=== PATIENT | female | born 1940 | race Caucasian/White ===

== ENCOUNTER 2020-03-20 14:15 | Emergency (ER) | payer OTHER ==
--- NOTE | 2020-03-20 14:19 | PDOC ---
Rapid Medical Evaluation Time Seen by Provider: 03/20/20 14:16 Medical Evaluation: 03/20/20 14:16 I have performed a brief in-person evaluation of this patient. CC: SOB; PMHx asthma PE: Lungs CTAB. HR-120. Orders: ekg, labs, urine, CXR, Covid-19 Patient will proceed to ED for further evaluation. 03/20/20 14:18 Discharge Disposition - Diagnosis SOB (shortness of breath) - Referrals - Patient Instructions - Post Discharge Activity
[2020-03-20 14:21] VITALS: TEMP 97.7; BMI 19.5
[2020-03-20 14:50] LABS: EOS % 2.9 % (0-4.5); HEMOGLOBIN 14.3 GM/dL (10.7-15.3); LYMPH % 25.2 % (8-40); MCH 31.6 pg (25.7-33.7); MCHC 33.3 g/dl (32.0-36.0); MEAN CELL VOLUME 94.8 fl (80-96); MEAN PLT VOLUME 7.7 fl (7.5-11.1); MONO % 6.8 % (3.8-10.2); NEUT % 64.1 % (42.8-82.8); PLATELET COUNT 318 K/MM3 (134-434); RBC 4.53 M/mm3 (3.60-5.2); RDW 13.6 % (11.6-15.6); WHITE BLOOD COUNT 6.9 K/mm3 (4.0-10.0)
[2020-03-20 14:56] LABS: PROTHROMBIN TIME (PATIENT) 11.8 SEC (9.7-13.0)
--- NOTE | 2020-03-20 14:56 | PDOC ---
History of Present Illness - General Chief Complaint: Shortness of Breath Stated Complaint: ASTHMA Time Seen by Provider: 03/20/20 14:16 - History of Present Illness Initial Comments: Pt is a 80yo F with a PMH asthma who presents with dry cough and SOB. Pt was sent by PCP for chest xray. Pt and her son providing history. States 5 month history of intermittent dry cough, dyspnea on exertion, sore throat. Was prescribed prednisone and albuterol by PCP, however patient did not take these medications. Was prescribed Zpack and told to take OTC cough medications, without improvement in symptoms. Denies recent travel, history of malignancy/cancer. Denies any recent sick contacts; lives at home with and sisters; denies known COVID exposure or history of COVID. Reports associated fatigue and palpitations. Son states recent decreased appetite, but patient states she is trying to loose weight. Denies f/c, chest pain, abdominal pain, n/v, melena/hematochezia, hematuria. PCP: Lisandro PMH: denies PSHx: denies Meds: denies All: NKDA Review of Systems CONSTITUTIONAL:reports fatigue, denies fever, chills, diaphoresis, generalized weakness HEENT:reports sore throat, denies rhinorrhea, nasal congestion, ear pain, eye pain, visual Changes CARDIOVASCULAR:reports palpitations; denies chest pain, syncope, lightheadedness, peripheral edema RESPIRATORY:reports cough, shortness of breath, dyspnea with exertion; denies orthopnea, wheezing, hemoptysis GASTROINTESTINAL: denies abdominal pain, nausea, vomiting, diarrhea, constipation, melena, hematochezia GENITOURINARY:denies dysuria, frequency, urgency, hesitancy, hematuria, flank pain MUSCULOSKELETAL:denies myalgia, arthralgia, back pain HEMATOLOGIC/IMMUNOLOGIC:denies easy bleeding, easy bruising ENDOCRINE: denies unexplained weight gain, unexplained weight loss NEUROLOGIC:denies headache, loss of consciousness, focal weakness or par esthesias, dizziness, unsteady gait, seizure, mental status changes, bladder or bowel incontinence SKIN:denies rash, itching, pallor Physical Exam General: awake, alert, in no acute distress, well developed, well nourished Head: normocephalic, atraumatic Eyes: PERRL, EOMI, anicteric sclera, conjunctiva clear ENT: hearing grossly normal, nares patent, oropharynx clear without exudates. No nasal congestion Moist mucous membranes; erythematous oropharynx; L tonsillar swelling w/o exudate Neck: supple, normal ROM; L submandibular mass appreciated on palpation Lung: equal breath sounds b/l, CTA b/l, no crackles, wheezes; no distress, speaks full sentences Heart: tachycardic, normal S1, S2, no murmurs, rubs, gallops Chest: retracted nipple on R side; multiple points of skin dimpling on R breast at 10, 7 and 5 o clock, firm hard mass to lateral aspect of R breast, asy mmetrical lie compared to L breast. No nipple discharge or bleeding appreciated. Abdomen: soft, non tender, normoactive bowel sounds, no guarding, rebound, masses Extremities: no edema, no erythema or tenderness, DP/PT pulses 2+ and symmetric, no clubbing, cyanosis Neuro: CN2-12 grossly intact, moves all extremities, normal speech, sensation intact 03/20/20 17:59 Past History - Medical History Allergies/Adverse Reactions: Allergies Allergy/AdvReac Type Severity Reaction Status Date / Time No Known Allergies Allergy Verified 03/20/20 14:21 Asthma: Yes COPD: No - Reproductive History Is Patient Now?: No - Immunization History Immunization Up to Date: No - Psycho-Social/Smoking History Smoking History: Never smoked Have you smoked in the past 12 months: No Information on smoking cessation initiated: No - Substance Abuse Hx (Audit-C & DAST Scrn) How often the patient has a drink containing alcohol: Never Score: In Men: 4 or > Positive; In Women: 3 or > Positive: 0 Screen Result (Pos requires Nsg. Audit-10AR): Negative In the last yr the pt used illegal drug/Rx for NonMed reason: No Score: Yes response is considered Positive: 0 Screen Result (Positive result requires Nsg. DAST-10): Negative *Physical Exam - Vital Signs Last Vital Signs Temp Pulse Resp BP Pulse Ox 97.7 F 109 H 16 156/88 97 03/20/20 14:17 03/20/20 14:17 03/20/20 14:17 03/20/20 14:17 03/20/20 14:17 ED Treatment Course - LABORATORY CBC & Chemistry Diagram: 03/20/20 14:30 03/20/20 14:30 - ADDITIONAL ORDERS Additional order review: 03/20/20 14:30 RBC 4.53 MCV 94.8 MCHC 33.3 RDW 13.6 MPV 7.7 Neutrophils % 64.1 Lymphocytes % 25.2 Monocytes % 6.8 Eosinophils % 2.9 Basophils % 1.0 Medical Decision Making - Medical Decision Making Pt is a 80yo F with a PMH asthma who presents with dry cough and SOB x5mo sent by PCP Vital Signs Period Temp Pulse Resp BP Sys/Nash Pulse Ox Last 24 Hr 97.7 F 109 16 156/88 97 DDx: asthma exacerbation, PE Plan: CXR, labs CXR: bilateral diffuse lung masses concerning for metastatic disease will order CT chest, abdomen, pelvis Labs: no anemia, no leukocytosis, electrolytes WNL, no TOMAS, troponin WNL Laboratory Tests 03/20/20 03/20/20 03/20/20 14:30 14:30 14:30 WBC 6.9 RBC 4.53 Hgb 14.3 Hct 43.0 MCV 94.8 MCH 31.6 MCHC 33.3 RDW 13.6 Plt Count 318 MPV 7.7 Absolute Neuts (auto) 4.4 Neutrophils % 64.1 Lymphocytes % 25.2 Monocytes % 6.8 Eosinophils % 2.9 Basophils % 1.0 Nucleated RBC % 0 PT with INR 11.80 INR 1.00 PTT (Actin FS) 35.9 Sodium 138 Potassium 4.3 Chloride 103 Carbon Dioxide 24 Anion Gap 11 BUN 17.6 Creatinine 1.1 Est GFR (CKD-EPI)AfAm 55.69 Est GFR (CKD-EPI)NonAf 48.05 Random Glucose 91 Calcium 9.9 Magnesium 2.6 H Total Bilirubin 1.2 H AST 42 H ALT 18 Alkaline Phosphatase 77 Creatine Kinase 71 Troponin I 0.05 Total Protein 7.7 Albumin 4.0 Consulted Heme/Onc given CXR, recommended pulm follow up, outpatient f/u with heme/onc within 1 week; blood culture to evaluate for endocarditis - during their evaluation, patient expressed desire to go home rather than admission Spoke with pulm who recommended outpatient f/u tomorrow for PET scan. pending CT 03/20/20 18:09 CT chest, abdomen, and pelvis: Innumerable bilateral lung mass lesions/nodules compatible with a neoplastic process/metastasis No definite enlarged mediastinal or hilar lymph nodes are identified. Multiple right breast masses suspicious for a neoplastic process. Evaluation of the abdomen pelvis is essentially unremarkable without CT evidence of an acute process or discrete mass lesion. Degenerative disc disease from L4 down to S1 level with significant bilateral facet hypertrophy, as described above as well as grade 1 anterolisthesis of L4 over L5. 03/20/20 18:[address] results with patient and her son. Discussed admission vs close outpatient follow up with patient. Pt expressed desire to go home. Informed of all lab and imaging results. Given copy of CT report and CD of imaging. Given follow up instructions and strict return precautions. Patient expressed understanding and agreed to plan. Disposition Discharge to home Discharge - Discharge Information Problems reviewed: Yes Clinical Impression/Diagnosis: SOB (shortness of breath) Condition: Stable Disposition: HOME - Admission No - Follow up/Referral Referrals: Sen Mcmahon MD [Primary Care Provider] - Braden Russell MD [Staff Physician] - Margot Brown MD [Staff Physician] - Roman Meyer MD [Staff Physician] - - Patient Discharge Instructions Additional Instructions: You came into the ER dry cough and shortness of breath. In the ED, you were evaluated with blood work, chest xray and CT scan of your chest, abdomen, and pelvis. Your results were concerning for metastatic disease in your lungs. You do not appear to be an acute need for immediate hospitalization, but you should follow up as soon as possible with the referrals below. You were given a referral to pulmonology (lung doctor). The office's phone numb er is [phone]. Call this number tomorrow morning to schedule an appoin tment. They will help you schedule a PET scan. You were given a referral to oncologist, Dr. Margot Brown. Call her office tomorrow morning to schedule an appointment. You will need to schedule an appointment within 1 week. You were given a referral to an ear, nose, and throat doctor, Dr. Meyer. Call tomorrow morning to schedule an appointment and follow up with him as able. Come back to the ER immediately with any new or worsening concerns. Thank you for coming to the [facility] ER. - Post Discharge Activity
[2020-03-20 14:59] LABS: ACTIVATED PTT 35.9 SECONDS (25.2-36.5)
[2020-03-20 15:41] LABS: BILIRUBIN,TOTAL 1.2 mg/dL (0.2-1); BLOOD UREA NITROGEN 17.6 mg/dL (7-18); CALCIUM 9.9 mg/dL (8.5-10.1); CREATININE 1.1 mg/dL (0.55-1.3); MAGNESIUM 2.6 mg/dL (1.8-2.4); POTASSIUM 4.3 mmol/L (3.5-5.1); TOT PROT 7.7 g/dl (6.4-8.2)
--- NOTE | 2020-03-20 16:41 | PDOC ---
Documentation entered by Tyree Huff SCRIBE, acting as scribe for Vinh Parra MD. Vinh Parra MD: This documentation has been prepared by the Refugio velasquez Xhesika, SCRIBE, under my direction and personally reviewed by me in its entirety. I confirm that the documentation accurately reflects all work, treatment, procedures, and medical decision making performed by me. Attending Attestation - Resident Resident Name: DwainCristiana - ED Attending Attestation I have performed the following: I have examined & evaluated the patient, The case was reviewed & discussed with the resident, I agree w/resident's findings & plan, Exceptions are as noted - HPI HPI: 03/20/20 15:18 The patient is a 80 year old female with a significant PMH of asthma (as a child) who presents to the emergency department for several months of congestion and intermittent cough. Pt saw Dr. Mcmahon 2 months ago, was prescribed a z-Pack which she finished with mild improvement of symptoms. Pt states she saw Dr. Mcmahon again today, he prescribed her prednisone and albuterol, but also advised her to come to the ED for CXR. Pt reports SOB on exertion and when walking up stairs. Pt denies any recent sick contacts. Denies recent traveling. The patient denies chest pain, headache and dizziness. Denies fever, chills, nausea, vomiting, diarrhea and constipation. Denies dysuria, frequency, urgency and hematuria. Allergies: NKDA PCP: Dr. Mcmahon - Physicial Exam PE: GENERAL: The patient is awake, alert, and fully oriented, Nontoxic - in no acute distress. LUNGS: Breath sounds equal, clear to auscultation bilaterally. No wheezes, no rhonchi, no rales. CHEST: retracted R niple with dimpling, no dischage HEART: Regular rate and rhythm, normal S1 and S2 without murmur, rub or gallop. ABDOMEN: Soft, nontender, No guarding, no rebound. No CVA tenderness EXTREMITIES: Normal range of motion, no edema. NEUROLOGICAL: No facial assymetry, Normal speech, - Medical Decision Making concern for possible metstatic disease in light of her sob/cxr findings and breast exam discussed with onc, ct chest obtained noted for innumerable b/l lung masses suspicios for neplastic disease will have pt fu for workup as an outpatient. Discharge - Discharge Information Problems reviewed: Yes Clinical Impression/Diagnosis: SOB (shortness of breath), Lung mass Condition: Stable Disposition: HOME - Admission No - Follow up/Referral Referrals: Margot Brown MD [Staff Physician] - Braden Russell MD [Staff Physician] - Sen Mcmahon MD [Primary Care Provider] - Roman Meyer MD [Staff Physician] - - Patient Discharge Instructions Additional Instructions: You came into the ER dry cough and shortness of breath. In the ED, you were evaluated with blood work, chest xray and CT scan of your chest, abdomen, and pelvis. Your results were concerning for metastatic disease in your lungs. You do not appear to be an acute need for immediate hospitalization, but you should follow up as soon as possible with the referrals below. You were given a referral to pulmonology (lung doctor). The office's phone number is [phone]. Call this number tomorrow morning to schedule an appointment. They will help you schedule a PET scan. You were given a referral to oncologist, Dr. Margot Brown. Call her office tomorrow morning to schedule an appointment. You will need to schedule an appointment within 1 week. You were given a referral to an ear, nose, and throat doctor, Dr. Meyer. Call tomorrow morning to schedule an appointment and follow up with him as able. Come back to the ER immediately with any new or worsening concerns. Thank you for coming to the [facility] ER. - Post Discharge Activity
--- NOTE | 2020-03-20 17:04 | CONSULT ---
Consultation: REQUESTING PROVIDER: Dr Prakash CONSULT REQUEST: We have been asked to medically evaluate this patient for possible metastatic disease on CXR HISTORY OF PRESENT ILLNESS: Patient is a 80 year old female with history of HLD, asthma, presented to the ED from her PCP's office for further evaluation of chronic cough and hoarseness of voice. Patient reported symptoms of dry cough and hoarseness started about 5 months ago. She would follow up with PCP through telehealth and would be prescribed antibiotics, which son reported she's not compliant with. Today, patient followed up at the office and was advised further evaluation at the hospital. Patient reported an 8-lb weight loss, but said it was intentional. Otherwise she denies any fevers, chills, sore throat, congestion, headache, dizziness, chest pain, abdominal pain, diarrhea, urinary symptoms. PMHx: HLD, asthma PSHx: SHx: denies smoking. EtOH use, illicit drug use Allergies: NKDA FHx: no hx of cancer in the family REVIEW OF SYSTEMS: CONSTITUTIONAL: Absent: fever, chills, diaphoresis, generalized weakness, malaise, loss of appetite, weight change HEENT: voice hoarseness, dry cough Absent: rhinorrhea, nasal congestion, throat pain, throat swelling, difficulty swallowing, mouth swelling, ear pain, eye pain, visual changes CARDIOVASCULAR: Absent: chest pain, syncope, palpitations, irregular heart rate, lightheadedness, peripheral edema RESPIRATORY: Absent: cough, shortness of breath, dyspnea with exertion, orthopnea, wheezing, stridor, hemoptysis GASTROINTESTINAL: Absent: abdominal pain, abdominal distension, nausea, vomiting, diarrhea, constipation, melena, hematochezia GENITOURINARY: Absent: dysuria, frequency, urgency, hesitancy, hematuria, flank pain, genital pain MUSCULOSKELETAL: Absent: myalgia, arthralgia, joint swelling, back pain, neck pain SKIN: Absent: rash, itching, pallor HEMATOLOGIC/IMMUNOLOGIC: Absent: easy bleeding, easy bruising, lymphadenopathy, frequent infections ENDOCRINE: Absent: unexplained weight gain, unexplained weight loss, heat intolerance, cold intolerance NEUROLOGIC: Absent: headache, focal weakness or paresthesias, dizziness, unsteady gait, seizure, mental status changes, bladder or bowel incontinence PSYCHIATRIC: Absent: anxiety, depression, suicidal or homicidal ideation, hallucinations. PHYSICAL EXAMINATION Vital Signs - 24 hr 03/20/20 14:17 Temperature 97.7 F Pulse Rate 109 H Respiratory 16 Rate Blood Pressure 156/88 O2 Sat by Pulse 97 Oximetry (%) GENERAL: Awake, alert, and fully oriented, in no acute distress. EARS, NOSE, THROAT:oropharynx erythematous, without exudates. Moist mucous membranes. NECK: Normal range of motion, supple LUNGS: Breath sounds equal, clear to auscultation bilaterally HEART: Regular rate and rhythm, normal S1 and S2 ABDOMEN: Soft, nontender, not distended, normoactive bowel sounds LOWER EXTREMITIES: 2+ pulses, warm, well-perfused. No calf tenderness. No peripheral edema. NEUROLOGICAL: Cranial nerves II-XII intact. Normal speech. PSYCHIATRIC: Cooperative. Good eye contact. Appropriate mood and affect. SKIN: Warm, dry, normal turgor Laboratory Results - last 24 hr 03/20/20 03/20/20 03/20/20 14:30 14:30 14:30 WBC 6.9 RBC 4.53 Hgb 14.3 Hct 43.0 MCV 94.8 MCH 31.6 MCHC 33.3 RDW 13.6 Plt Count 318 MPV 7.7 Absolute Neuts (auto) 4.4 Neutrophils % 64.1 Lymphocytes % 25.2 Monocytes % 6.8 Eosinophils % 2.9 Basophils % 1.0 Nucleated RBC % 0 PT with INR 11.80 INR 1.00 PTT (Actin FS) 35.9 Sodium 138 Potassium 4.3 Chloride 103 Carbon Dioxide 24 Anion Gap 11 BUN 17.6 Creatinine 1.1 Est GFR (CKD-EPI)AfAm 55.69 Est GFR (CKD-EPI)NonAf 48.05 Random Glucose 91 Calcium 9.9 Magnesium 2.6 H Total Bilirubin 1.2 H AST 42 H ALT 18 Alkaline Phosphatase 77 Creatine Kinase 71 Troponin I 0.05 Total Protein 7.7 Albumin 4.0 ASSESSMENT/PLAN: Patient is a 80 year old female with history of HLD, asthma, presented to the ED from her PCP's office for further evaluation of chronic cough and hoarseness of voice. We were called to evaluate for diffuse bilateral lung masses found on CXR #Lung masses b/l -recommended Chest/Abdomen CT with contrast for further evaluation of lung lesions -recommend Pulm consult -ID consult for possible ?infectious origin -if patient not amenable to admission, please have her follow up with Dr. Margot in clinic within a week. Dispo: We will continue to follow the patient. Thank you for this consultative opportunity. Visit type - Medication Review Med list reviewed for High Risk Meds patients 65 and older: Yes - Emergency Visit Emergency Visit: Yes Care time: The patient presented to the Emergency Department on the above date and was hospitalized for further evaluation of their emergent condition. - New Patient This patient is new to me today: Yes Date on this admission: 03/20/20 - Critical Care Critical Care patient: No ATTENDING PHYSICIAN STATEMENT I saw and evaluated the patient. I reviewed the resident's note and discussed the case with the resident. I agree with the resident's findings and plan as documented. SUBJECTIVE: OBJECTIVE: ASSESSMENT AND PLAN:
[2020-03-20 18:24] VITALS: BP 137/94; PULSE 107
--- NOTE | 2020-03-21 13:16 | EKG ---
Test Reason : Blood Pressure : / mmHG Vent. Rate : 099 BPM Atrial Rate : 099 BPM P-R Int : 142 ms QRS Dur : 078 ms QT Int : 360 ms P-R-T Axes : 055 002 053 degrees QTc Int : 462 ms NORMAL SINUS RHYTHM POSSIBLE LEFT ATRIAL ENLARGEMENT BORDERLINE ECG WHEN COMPARED WITH ECG OF 26-JAN-2007 15:54, NO SIGNIFICANT CHANGE WAS FOUND Confirmed by MD SENIA, ZOE ([id number]) on 03/21/2020 1:15:56 PM Referred By: Confirmed By:ZOE CONN MD
== END 2020-03-20 18:27 | disposition home or self-care (01) ==
LOC: JER 14:15
DX: R06.02 Shortness of breath (principal)
CPT/HCPCS: 36415; 71046-TC-FY; 71260-TC; 74177-TC; 80053; 82550; 83735; 84484; 85025; 85610; 85730; 93005; 93010; 99285-25; Q9967; U0003

== ENCOUNTER 2020-09-05 19:15 | Inpatient (IN) | payer OTHER ==
[2020-09-05] MEDS ORDERED: ALBUTEROL SO4 2.5/IPRATROPIUM 0.5 INH SOL 3 ML VIAL.NEB. NEB ONE ×2 (20:06→20:23)
[2020-09-05] MEDS ORDERED: DEXAMETHASONE SOD PHOSPHATE 10 MG/1 ML VIAL IVPUSH ONE (20:06)
[2020-09-05 20:11] VITALS: BMI 16.6
[2020-09-05] MEDS ORDERED: DEXAMETHASONE SOD PHOSPHATE 10 MG/1 ML VIAL ONE (20:22)
[2020-09-05 20:55] LABS: BASO % 0.2 % (0-2.0); EOS % 0.6 % (0-4.5); HEMATOCRIT 46.5 % (32.4-45.2); HEMOGLOBIN 15.5 GM/dL (10.7-15.3); LYMPH % 8.8 % (8-40); MCH 31.3 pg (25.7-33.7); MCHC 33.4 g/dl (32.0-36.0); MEAN CELL VOLUME 93.7 fl (80-96); MONO % 7.2 % (3.8-10.2); NEUT % 83.2 % (42.8-82.8); RBC 4.96 M/mm3 (3.60-5.2); RDW 15.2 % (11.6-15.6); WHITE BLOOD COUNT 11.2 K/mm3 (4.0-10.0)
[2020-09-05 21:07] LABS: INR 1.05 (0.83-1.09); PROTHROMBIN TIME (PATIENT) 12.7 SEC (9.7-13.0)
[2020-09-05 21:09] LABS: ACTIVATED PTT 24.4 SECONDS (25.2-36.5)
[2020-09-05 21:16] LABS: POTASSIUM 4.4 mmol/L (3.5-5.1)
[2020-09-05 21:19] LABS: ALBUMIN 3.9 g/dl (3.4-5.0); BLOOD UREA NITROGEN 25.2 mg/dL (7-18)
[2020-09-05 21:22] LABS: CREATININE 1.2 mg/dL (0.55-1.3)
[2020-09-05 21:23] LABS: BILIRUBIN,TOTAL 1.6 mg/dL (0.2-1)
[2020-09-05 21:33] LABS: PLATELET COUNT 295 K/MM3 (134-434)
[2020-09-05] MEDS ORDERED: SODIUM CHLORIDE 0.9% 500 ML INFUS.BAG IV ONE (21:42)
[2020-09-05 22:49] LABS: ARTERIAL BLD GAS O2 SATURATION 97.1 mmHg (95-98); ARTERIAL BLOOD GAS BASE EXCESS -2.9 mmol/L (-2-2); ARTERIAL BLOOD GAS PO2 90.8 mmHg (80-100); ARTERIAL BLOOD GAS pH 7.413 (7.350-7.450)
[2020-09-05 22:51] LABS: ALLENS TEST POSITIVE
[2020-09-06] MEDS ORDERED: SODIUM CHLORIDE 0.9% 500 ML INFUS.BAG IV ONE (02:40)
[2020-09-06] MEDS ORDERED: ONDANSETRON 4 MG/2 ML VIAL IVPUSH ONE (05:05)
[2020-09-06] MEDS ORDERED: ONDANSETRON 4 MG/2 ML VIAL ONE (05:09)
[2020-09-06] MEDS: DEXTROSE 5%-0.45% SALINE 1,000 ML IV SCH ×2 (05:31→23:18)
[2020-09-06 07:06] LABS: INR 1.14 (0.83-1.09); PROTHROMBIN TIME (PATIENT) 13.7 SEC (9.7-13.0)
[2020-09-06 07:07] LABS: ACTIVATED PTT 26.8 SECONDS (25.2-36.5)
[2020-09-06 07:12] LABS: BASO % 0.2 % (0-2.0); HEMATOCRIT 37.2 % (32.4-45.2); HEMOGLOBIN 12.7 GM/dL (10.7-15.3); LYMPH % 6.2 % (8-40); MCH 31.3 pg (25.7-33.7); MCHC 34.1 g/dl (32.0-36.0); MEAN CELL VOLUME 91.9 fl (80-96); MEAN PLT VOLUME 8.3 fl (7.5-11.1); MONO % 2.4 % (3.8-10.2); NEUT % 91.2 % (42.8-82.8); PLATELET COUNT 233 K/MM3 (134-434); RBC 4.05 M/mm3 (3.60-5.2); RDW 14.8 % (11.6-15.6); WHITE BLOOD COUNT 8.6 K/mm3 (4.0-10.0)
[2020-09-06 07:20] LABS: POTASSIUM 4.3 mmol/L (3.5-5.1)
[2020-09-06 07:31] LABS: ALBUMIN 3.1 g/dl (3.4-5.0); CALCIUM 8.7 mg/dL (8.5-10.1)
[2020-09-06 07:32] LABS: BLOOD UREA NITROGEN 22.3 mg/dL (7-18); MAGNESIUM 2.1 mg/dL (1.8-2.4)
[2020-09-06 07:34] LABS: PHOSPHOROUS 3.4 mg/dL (2.5-4.9)
[2020-09-06 07:35] LABS: CREATININE 0.8 mg/dL (0.55-1.3)
[2020-09-06 07:36] LABS: BILIRUBIN,TOTAL 1.2 mg/dL (0.2-1); TOT PROT 6.1 g/dl (6.4-8.2)
[2020-09-06 09:30] LABS: ANISOCYTOSIS 0; MACROCYTOSIS 0; PLATELET ESTIMATE NORMAL
[2020-09-06 11:20] LABS: EPI CELLS >36 /uL (0-25.1); HYALINE CASTS 7 /uL (0-3.1); URINE APPEARANCE Clear; URINE BACTERIA 127 /uL (0-1359); URINE BILIRUBIN Negative (NEGATIVE); URINE COLOR Yellow; URINE GLUCOSE (UA) Negative (NEGATIVE); URINE KETONE 15 mg/dl (NEGATIVE); URINE LEUK ESTERASE Trace (NEGATIVE); URINE NITRITE Negative (NEGATIVE); URINE PROTEIN Negative (NEGATIVE); URINE UROBILINOGEN 0.2 mg/dL (0.2-1.0); URINE WBC 94 /uL (0-25.8)
[2020-09-06 11:32] LABS: URINE RBC 18.8 /uL (0-23.9)
[2020-09-06 11:33] LABS: URINE CRYSTALS PRESENT /hpf
[2020-09-06] MEDS ORDERED: PIPERACILLIN/TAZOB 3.375 GM 3.375 GM in DEXTROSE 5%-WATER - 50 ML IVPB ONE (12:05)
[2020-09-06] MEDS ORDERED: PIPERACILLIN/TAZOB 3.375 GM 3.375 GM/50 ML BAG IVPB ONE ×2 (12:48→18:12)
[2020-09-06] MEDS ORDERED: guaiFENesin/CODEINE 5 ML UNIT-DOSE CUPS PO PRN (14:22)
[2020-09-06] MEDS ORDERED: ALBUTEROL SO4 0.083% IH SOL 2.5 MG/3 ML VIAL.NEB. NEB PRN (14:23)
[2020-09-06] MEDS ORDERED: methylPREDNISolone NA SUCC 40 MG/1 ML VIAL ONE ×2 (14:34→18:12)
[2020-09-06] MEDS: methylPREDNISolone NA SUCC 40 MG/1 ML VIAL IVPUSH SCH ×2 (14:39→18:17)
[2020-09-06] MEDS: ALBUTEROL SO4 2.5/IPRATROPIUM 0.5 INH SOL 3 ML VIAL.NEB. NEB SCH ×2 (17:08→21:06)
[2020-09-06] MEDS: PIPERACILLIN/TAZOB 3.375 GM 3.375 GM in DEXTROSE 5%-WATER - 50 ML IVPB SCH (18:17)
[2020-09-07 01:06] LABS: ARTERIAL BLD GAS O2 SATURATION 98.9 mmHg (95-98); ARTERIAL BLOOD GAS BASE EXCESS -5.2 mmol/L (-2-2); ARTERIAL BLOOD GAS PO2 182.2 mmHg (80-100)
[2020-09-07 01:09] LABS: ALLENS TEST POSITIVE
[2020-09-07 01:13] LABS: ARTERIAL BLOOD GAS pH 7.194 (7.350-7.450)
[2020-09-07 01:22] LABS: POTASSIUM 4.1 mmol/L (3.5-5.1)
[2020-09-07 01:25] LABS: CALCIUM 9.2 mg/dL (8.5-10.1)
[2020-09-07 01:26] LABS: BLOOD UREA NITROGEN 21.6 mg/dL (7-18)
[2020-09-07 01:29] LABS: CREATININE 1.1 mg/dL (0.55-1.3)
[2020-09-07] MEDS ORDERED: PIPERACILLIN/TAZOBACTAM 3.375 GM VIAL IVPB ONE ×3 (02:10→17:03)
[2020-09-07] MEDS ORDERED: DEXTROSE 5%-WATER - 50 ML IVPB ONE ×3 (02:10→17:04)
[2020-09-07] MEDS: PIPERACILLIN/TAZOB 3.375 GM 3.375 GM in DEXTROSE 5%-WATER - 50 ML IVPB SCH ×3 (02:17→17:08)
[2020-09-07] MEDS: methylPREDNISolone NA SUCC 40 MG/1 ML VIAL IVPUSH SCH ×3 (02:17→17:08)
[2020-09-07] MEDS: ALBUTEROL SO4 2.5/IPRATROPIUM 0.5 INH SOL 3 ML VIAL.NEB. NEB SCH ×4 (08:10→20:39)
[2020-09-07] MEDS: DEXTROSE 5%-0.45% SALINE 1,000 ML IV SCH (09:38)
[2020-09-07] MEDS: MORPHINE SULFATE 2 MG/ML VIAL IVPUSH PRN ×3 (11:40→17:09)
[2020-09-08] MEDS ORDERED: DEXTROSE 5%-WATER - 50 ML IVPB ONE ×2 (01:24→08:24)
[2020-09-08] MEDS ORDERED: PIPERACILLIN/TAZOBACTAM 3.375 GM VIAL IVPB ONE ×2 (01:24→08:24)
[2020-09-08] MEDS: MORPHINE SULFATE 2 MG/ML VIAL IVPUSH PRN ×4 (01:31→15:58)
[2020-09-08] MEDS: methylPREDNISolone NA SUCC 40 MG/1 ML VIAL IVPUSH SCH ×3 (01:31→18:56)
[2020-09-08] MEDS: PIPERACILLIN/TAZOB 3.375 GM 3.375 GM in DEXTROSE 5%-WATER - 50 ML IVPB SCH ×2 (01:42→09:46)
[2020-09-08] MEDS: DEXTROSE 5%-0.45% SALINE 1,000 ML IV SCH (04:34)
[2020-09-08] MEDS: ALBUTEROL SO4 2.5/IPRATROPIUM 0.5 INH SOL 3 ML VIAL.NEB. NEB SCH ×4 (08:00→21:00)
[2020-09-09] MEDS: methylPREDNISolone NA SUCC 40 MG/1 ML VIAL IVPUSH SCH ×3 (01:30→17:02)
[2020-09-09] MEDS: ALBUTEROL SO4 2.5/IPRATROPIUM 0.5 INH SOL 3 ML VIAL.NEB. NEB SCH ×4 (08:30→21:17)
[2020-09-09] MEDS ORDERED: ACETAMINOPHEN 325 MG TABLET (FP) ONE (08:34)
[2020-09-09] MEDS: MORPHINE SULFATE 2 MG/ML VIAL IVPUSH PRN ×3 (08:37→17:02)
[2020-09-09] MEDS: DEXTROSE 5%-0.45% SALINE 1,000 ML IV SCH (10:19)
[2020-09-09 22:45] VITALS: TEMP 97.6
[2020-09-10] MEDS: methylPREDNISolone NA SUCC 40 MG/1 ML VIAL IVPUSH SCH (02:08)
[2020-09-10 02:14] VITALS: BP 102/45; PULSE 102
[2020-09-10] MEDS: ALBUTEROL SO4 2.5/IPRATROPIUM 0.5 INH SOL 3 ML VIAL.NEB. NEB SCH (08:58)
== END 2020-09-10 10:49 | disposition expired | DRG 180 ==
LOC: JER 19:15 → JERBED 09-06 02:53 → J4W 09-06 18:35
PROVIDERS: ADMIT Hospitalist; ATTEND Nurse Practitioner Acute Care
DX: C78.00 Secondary malignant neoplasm of unspecified lung (principal); J96.01 Acute respiratory failure with hypoxia; E87.2 Acidosis; Z68.1 Body mass index [BMI] 19.9 or less, adult; R64 Cachexia; J45.901 Unspecified asthma with (acute) exacerbation; I24.8 Other forms of acute ischemic heart disease; R65.10 Systemic inflammatory response syndrome (SIRS) of non-infectious origin without acute organ dysfunction; R04.2 Hemoptysis; C50.911 Malignant neoplasm of unspecified site of right female breast; R62.7 Adult failure to thrive; Z66 Do not resuscitate; E78.5 Hyperlipidemia, unspecified; F41.9 Anxiety disorder, unspecified
CPT/HCPCS: 36415; 36600; 71045-TC-FY; 71275-TC; 80048; 80053; 81003; 82248; 82550; 82728; 82803; 82962; 83605; 83615; 83735; 84100; 84484; 85025; 85379; 85610; 85730; 86140; 87040; 87086; 87804; 93005; 93010; 94640; 94660; 99285-25; C9803; J1100; Q9967; U0003